=== PATIENT | male | born 1980 | race Caucasian/White ===

== ENCOUNTER 2025-08-31 12:04 | Emergency (ER) | payer OTHER ==
[~2025-08-31] VITALS: Ht 160 cm; Wt 68.0 kg
[2025-08-31 12:10] VITALS: O2SAT 98
[2025-08-31 12:37] LABS: BASOPHILS % 0.6 % (0.0-2.0); EOSINOPHILS % 1.5 % (0.0-5.0); HEMATOCRIT. 38.7 % (42.0-52.0); HEMOGLOBIN. 13.1 g/dL (14.0-18.0); LYMPHOCYTES % 19.3 % (20.0-50.0); MEAN PLATELET VOLUME 7.8 fl (7.4-10.4); MONOCYTES % 11.3 % (2.0-8.0); NEUTROPHILS % 67.3 % (40.0-76.0); PLATELET 269 x1000/uL (130-400); RED BLOOD CELL COUNT 4.53 mill/uL (4.7-6.1); RED CELL DISTRIBUTION WIDTH 14.3 % (11.6-14.6)
[2025-08-31 12:53] LABS: CREATININE 0.8 mg/dL (0.6-1.3); UREA NITROGEN BLOOD 13 mg/dL (9-23)
[2025-08-31 12:54] LABS: TROPONIN I HIGH SENSITIVITY < 4 ng/L (3.0-53)
[2025-08-31 13:42] VITALS: BP 121/79; PULSE 79; RESP 18; TEMP 36.6; O2SAT 98
== END 2025-08-31 14:12 ==
LOC: ER 12:04
DX: R07.89 Other chest pain (principal); I25.2 Old myocardial infarction; Z79.899 Other long term (current) drug therapy
CPT/HCPCS: 36415; 71045; 80048; 83880; 84484; 85025; 99285